=== PATIENT | female | born 1950 | race Caucasian/White ===

== ENCOUNTER 2020-12-05 14:39 | Emergency (ER) | payer OTHER ==
[2020-12-05 15:13] LABS: BASOPHIL 0.6 % (0-2); EOSINOPHIL 1.4 % (0-7); HCT 32.9 % (37.0-47.0); HGB 10.6 g/dl (12.5-16.0); LYMPHOCYTE 31.2 % (15-48); MCH 31.6 pg (25.0-31.0); MCHC 32.2 g/dL (32.0-36.0); MCV 98.2 fL (78.0-100.0); MONOCYTE 5.7 % (0-12); MPV 10.1 fL (6.0-9.5); NRBC 0; PLT 223 K/uL (150-400); RBC 3.35 M/uL (4.20-5.40); WBC 7.2 K/uL (4.0-10.5)
[2020-12-05 15:28] LABS: INR 1.03 (0.9-1.2); PROTHROMBIN TIME 12.8 SECONDS (11.4-13.6); PTT 34.6 SECONDS (22.2-34.7)
[2020-12-05 15:39] LABS: LACTIC ACID 1.9 mmol/L (0.4-1.9)
[2020-12-05 15:58] LABS: ALBUMIN 3.7 g/dL (3.4-5.0); BILIRUBIN - TOTAL 0.2 mg/dL (0.2-1.0); BUN/CREAT RATIO (CALC) 27.6 RATIO; CREATININE 1.16 mg/dL (0.51-0.95); GLOBULIN (CALCULATION) 3.6 g/dL; POTASSIUM 4.2 mmol/L (3.5-5.1); TOTAL PROTEIN 7.3 g/dL (6.4-8.2)
[2020-12-05] MEDS ORDERED: STOOL SOFTENER100 MG PO (16:50)
[2020-12-05] MEDS ORDERED: MIRALAX17 GM PO (16:50)
[2020-12-25] MEDS ORDERED: LISINOPRIL-HCT1 EAC1 PO (08:45)
[2020-12-25] MEDS ORDERED: LITHIUM300 MG PO (08:45)
[2020-12-25] MEDS ORDERED: HYDROXYZINE 10M10 MG PO (08:46)
[2020-12-25] MEDS ORDERED: CYCLOBENZAPRINE5 MG PO (08:46)
[2020-12-25] MEDS ORDERED: TRAMADOL HCL50 MG PO (08:47)
== END 2020-12-05 17:28 | disposition home or self-care (01) ==
LOC: FER 14:39
PROVIDERS: Emergency Medicine
DX: K60.2 Anal fissure, unspecified (principal); D64.9 Anemia, unspecified; I10 Essential (primary) hypertension; Z90.49 Acquired absence of other specified parts of digestive tract; Z79.899 Other long term (current) drug therapy
CPT/HCPCS: 36415; 80053; 82270; 83605; 84484; 85025; 85610; 85730; 93005

== ENCOUNTER → 2021-01-01 | Day surgery (SDC) | payer MEDICARE ==
[~2021-01-01] MED LIST: CYCLOBENZAPRINE5 MG PO; HYDROXYZINE 10M10 MG PO; LISINOPRIL-HCT1 EAC1 PO; LITHIUM300 MG PO; MIRALAX17 GM PO; STOOL SOFTENER100 MG PO; TRAMADOL HCL50 MG PO
== END | disposition home or self-care (01) ==
LOC: FAS 07:02
DX: D64.9 Anemia, unspecified (principal); D12.0 Benign neoplasm of cecum; K64.0 First degree hemorrhoids; K44.9 Diaphragmatic hernia without obstruction or gangrene; K59.00 Constipation, unspecified; K62.89 Other specified diseases of anus and rectum; M19.90 Unspecified osteoarthritis, unspecified site; I25.2 Old myocardial infarction; I10 Essential (primary) hypertension; I78.1 Nevus, non-neoplastic; I83.819 Varicose veins of unspecified lower extremity with pain; Z86.010 Personal history of colon polyps; Z79.899 Other long term (current) drug therapy; Z88.2 Allergy status to sulfonamides
CPT/HCPCS: 88305; J2250; J2405; J2704; J7120

== ENCOUNTER 2022-03-13 11:52 | Emergency (ER) | payer MEDICARE ==
[2022-03-13 13:11] LABS: BASOPHIL 0.6 % (0-2); HCT 34.9 % (37.0-47.0); LYMPHOCYTE 36.3 % (15-48); MCH 31.4 pg (25.0-31.0); MCHC 31.5 g/dL (32.0-36.0); MCV 99.7 fL (78.0-100.0); MONOCYTE 6.1 % (0-12); MPV 10.2 fL (6.0-9.5); NEUTROPHIL 54.8 % (41-80); NRBC 0; PLT 179 K/uL (150-400); RDW 12.2 % (11.5-14.0); WBC 5.4 K/uL (4.0-10.5)
[2022-03-13 13:45] LABS: ALBUMIN 3.5 g/dL (3.4-5.0); BILIRUBIN - TOTAL 0.4 mg/dL (0.2-1.0); BUN/CREAT RATIO (CALC) 9.6 RATIO; CREATININE 0.94 mg/dL (0.51-0.95); GLOBULIN (CALCULATION) 3.6 g/dL; POTASSIUM 4.3 mmol/L (3.5-5.1); TOTAL PROTEIN 7.1 g/dL (6.4-8.2)
[2022-03-13 13:53] LABS: BILIRUBIN NEGATIVE (NEGATIVE); BLOOD NEGATIVE Ery/uL (NEGATIVE); CLARITY CLEAR (CLEAR); COLOR YELLOW (YELLOW); GLUCOSE (U) NORMAL (NORMAL); LEUKOCYTES TRACE Leu/uL (NEGATIVE); NITRITE NEGATIVE (NEGATIVE); PROTEIN NEGATIVE (NEGATIVE); UROBILINOGEN 0.2 mg/dL (0.2-1.0)
[2022-03-13 14:02] LABS: BACTERIA TRACE
[2022-03-13] MEDS ORDERED: PEPCID AC20 MG PO (14:37)
== END 2022-03-13 14:58 | disposition home or self-care (01) ==
LOC: FER 11:52
PROVIDERS: Physician Assistant
DX: R10.84 Generalized abdominal pain (principal); R11.0 Nausea; R91.1 Solitary pulmonary nodule; I25.2 Old myocardial infarction; N18.30 Chronic kidney disease, stage 3 unspecified; Z88.2 Allergy status to sulfonamides; Z28.310 Unvaccinated for COVID-19
CPT/HCPCS: 36415; 80053; 81001; 83690; 85025; J2405; J7040